=== PATIENT | male | born 1965 | race African-American/Black ===

== ENCOUNTER 2016-11-05 21:29 | Emergency (ER) | payer OTHER ==
[2016-11-05 23:18] VITALS: BP 118/72
== END 2016-11-05 23:18 | disposition home or self-care (01) ==
LOC: ED 21:29
DX: M25.561 Pain in right knee (principal); G89.29 Other chronic pain; K74.60 Unspecified cirrhosis of liver; R05 Cough
CPT/HCPCS: J7613; J7644; Q0092

== ENCOUNTER 2018-10-10 16:12 | Emergency (ER) | payer SELFPAY ==
[~2018-10-10] VITALS: Ht 177.8 cm; Wt 110.7 kg
[2018-10-10 16:22] VITALS: Ht 177.8 cm; Wt 110.7 kg
[2018-10-10 18:44] VITALS: BP 137/76
== END 2018-10-10 18:44 | disposition home or self-care (01) ==
LOC: ED 16:12
DX: M54.42 Lumbago with sciatica, left side (principal); Z88.0 Allergy status to penicillin

== ENCOUNTER 2019-05-09 15:07 | Emergency (ER) | payer SELFPAY ==
[~2019-05-09] VITALS: Ht 177.8 cm; Wt 91.6 kg
[2019-05-09 15:25] VITALS: Ht 177.8 cm; Wt 91.6 kg
[2019-05-09 17:17] VITALS: BP 134/85
== END 2019-05-09 17:17 | disposition home or self-care (01) ==
LOC: ED 15:07
DX: M54.6 Pain in thoracic spine (principal); F17.210 Nicotine dependence, cigarettes, uncomplicated; Z88.1 Allergy status to other antibiotic agents; V28.4XXA Motorcycle driver injured in noncollision transport accident in traffic accident, initial encounter; Y93.55 Activity, bike riding; Y92.488 Other paved roadways as the place of occurrence of the external cause; Y99.8 Other external cause status
CPT/HCPCS: 99406

== ENCOUNTER 2020-02-12 12:23 | Emergency (ER) | payer SELFPAY ==
[~2020-02-12] VITALS: Ht 177.8 cm; Wt 85.3 kg
[2020-02-12 12:30] VITALS: Ht 177.8 cm; Wt 85.3 kg
[2020-02-12 13:40] VITALS: BP 105/68
== END 2020-02-12 15:01 | disposition home or self-care (01) ==
LOC: ED 12:23
DX: M19.90 Unspecified osteoarthritis, unspecified site (principal); M65.232 Calcific tendinitis, left forearm; Z88.1 Allergy status to other antibiotic agents
CPT/HCPCS: J1100; J1885

== ENCOUNTER 2020-04-01 15:20 | Emergency (ER) | payer SELFPAY | END 2020-04-01 18:39 | disposition home or self-care (01) | LOC: ED 15:20 | DX: K62.5 Hemorrhage of anus and rectum (principal) ==

== ENCOUNTER 2020-04-06 17:54 | Emergency (ER) | payer SELFPAY ==
[~2020-04-06] VITALS: Ht 177.8 cm; Wt 79.8 kg
[2020-04-06 18:32] VITALS: Ht 177.8 cm; Wt 79.8 kg
[2020-04-06 19:05] VITALS: BP 111/76
== END 2020-04-06 19:05 | disposition home or self-care (01) ==
LOC: ED 17:54
DX: M19.90 Unspecified osteoarthritis, unspecified site (principal); F17.210 Nicotine dependence, cigarettes, uncomplicated; Z13.9 Encounter for screening, unspecified; Z88.1 Allergy status to other antibiotic agents